=== PATIENT | male | born 1945 | race Caucasian/White ===

== ENCOUNTER 2017-05-05 18:42 | Emergency (ER) | payer OTHER ==
[2017-05-05 19:02] VITALS: TEMP 98.6
[2017-05-05] MEDS ORDERED: LISINOPRIL 10 MG TAB PO ONE (19:08)
--- NOTE | 2017-05-05 19:10 | ED.PDOC ---
History of Present Illness - General Chief Complaint: Blood Pressure Problem Stated Complaint: high blood pressure Time Seen by Provider: 05/05/17 19:02 Source: patient, RN notes reviewed, Vital Signs reviewed, family - Exam Limitations: no limitations - History of Present Illness Initial Comments: Patient comes in with c/o elevated blood pressure. He ran out of his Lisinopril 3 days ago and did not get it refilled. + MARTINEZ. No chest pain or SOB. Reports that overall he feels fine. Timing/Duration: getting worse - over 3 days without medication Severity: moderate Improving Factors: medication Worsening Factors: nothing Associated Symptoms: headaches Allergies/Adverse Reactions: Allergies Nitroglycerin Adverse Reaction (Verified 05/05/17 19:02) Other "Drops the BP down real low" Home Medications: Ambulatory Orders Cyanocobalamin [Vitamin B12] 500 mcg PO DAILY 02/12/15 Escitalopram [Lexapro] 10 mg PO DAILY 02/12/15 Folic Acid 1 mg PO DAILY 02/12/15 Labetalol HCl 100 mg PO BID 02/12/15 Lisinopril 10 mg PO DAILY 02/12/15 Multiple Vitamins W/ Minerals [Century Mature] 1 tab PO DAILY 02/12/15 Vitamins W/ Lipotropics [B-100] 1 tab PO DAILY 02/12/15 Thiamine HCl 100 mg PO DAILY #30 tab 02/13/15 Ujleuaaoeflzm-Wmhb-Yuihgedqpl [Fioricet] 1 ea PO Q8H PRN #21 tab 01/24/16 Review of Systems - Review of Systems Constitutional: States: no symptoms reported. Denies: diaphoresis, malaise, weakness EENTM: States: no symptoms reported Respiratory: States: no symptoms reported. Denies: short of breath Cardiology: States: no symptoms reported. Denies: chest pain Gastrointestinal/Abdominal: States: no symptoms reported Musculoskeletal: States: no symptoms reported Skin: States: no symptoms reported Neurological: States: headache. Denies: numbness, paresthesia, tingling, tremors, weakness All other Systems: No Change from Baseline Past Medical History (General) - Patient Medical History Hx Seizures: Yes - siezure type activity, but not a typical seizure. Hx Stroke: Yes - 4 years ago. Hx Asthma: Yes - as a kid. Hx of COPD: No Hx Cardiac Disorders: No Hx Congestive Heart Failure: No Hx Pacemaker: No Hx Hypertension: Yes Hx Diabetes: No Hx Gastroesophageal Reflux: Yes Hx MRSA: No Surgical History: no surgical history - Vaccination History Hx Tetanus, Diphtheria Vaccination: Yes - Social History Hx Tobacco Use: No Hx Alcohol Use: Yes - 6 beers daily Hx Substance Use: No Hx Substance Use Treatment: No Hx Physical Abuse: No Hx Emotional Abuse: No - Female History Patient : No Family Medical History - Family History Father Family History: No Known Name: Jose Ricardo Sr. Living Status: Age at (years of age): 72 Cause of : Pancreatic cancer Hx Family Asthma: - other history unknown Hx Family Cancer: Yes Physical Exam - Physical Exam General Appearance: Alert, Comfortable, No apparent distress, Well Developed, Well Groomed, Well Hydrated, Well Nourished Eye Exam: bilateral normal Neck: supple, normal inspection Respiratory: chest non-tender, lungs clear, normal breath sounds, no respiratory distress, no accessory muscle use Cardiovascular/Chest: regular rate, rhythm, no gallop, no JVD, no murmur Gastrointestinal/Abdominal: normal bowel sounds, non tender, soft, no organomegaly, no pulsatile mass Extremity: normal inspection Neurologic: no motor/sensory deficits, alert, normal mood/affect, oriented x 3 Skin Exam: normal color, warm/dry Comments: Vital Signs 05/05/17 18:58 Temperature 98.6 F Pulse Rate [ 69 pulse ox] Respiratory 16 Rate Blood Pressure 187/111 [Left Arm] O2 Sat by Pulse 96 Oximetry Progress - Progress Progress: 05/05/17 21:20 Patient given Lisinopril 20mg PO w/o improvement so gave Metoprolol 25mg PO. BP still 179/96. Will recheck in 15 minutes, if still elevated will give clonidine 0.1mg po. 05/05/17 21:33 BP still elevated @ 177/109 Will give Clonidine 0.2mg PO 05/05/17 22:15 BP is still 180/103. Will [address] IV and give Cardizem 20mg IV. 05/05/17 23:36 BP 115/96 P 52 05/06/17 00:10 BP has been fairly stead but now he is a little confused. now reports his blood pressure at home is normally in the 170's. fasting blood sugar is 91 05/06/17 00:19 now reports that this confusion is not unusual for him. BP now 158/72. seems to have overly dramatic reactions to things she later reports are normal for him: the BP in the 170's and the confusion. Will d/c home with instructions to fill and restart Lisinopril. Follow up with PCP this week to adjust BP medications to get better control. 05/06/17 00:23 - Results/Orders Results/Orders: Laboratory Tests 05/06/17 00:09 POC Glucose 91 Departure - Departure Clinical Impression: Hypertension Qualifiers: Hypertension type: essential hypertension Qualified Code(s): I10 - Essential ( primary) hypertension ICD-10 Supporting Text: Due to not taking his blood pressure medication. Time of Disposition: 00:22 Disposition: Discharge to Home or Self Care Condition: Good Departure Forms: ED Discharge - Pt. Copy, Patient Portal Self Enrollment Instructions: DI for High Blood Pressure Diet: resume usual diet Activity: increase activity as tolerated Referrals: ALYSIA OWENS IV, SENIOR [employer] CONSULTANT [Primary Care Provider] - 1-5 Days Home Medications: Ambulatory Orders Cyanocobalamin [Vitamin B12] 500 mcg PO DAILY 02/12/15 Escitalopram [Lexapro] 10 mg PO DAILY 02/12/15 Folic Acid 1 mg PO DAILY 02/12/15 Labetalol HCl 100 mg PO BID 02/12/15 Lisinopril 10 mg PO DAILY 02/12/15 Multiple Vitamins W/ Minerals [Century Mature] 1 tab PO DAILY 02/12/15 Vitamins W/ Lipotropics [B-100] 1 tab PO DAILY 02/12/15 Thiamine HCl 100 mg PO DAILY #30 tab 02/13/15 Ysuaqwblsjsot-Lnra-Ykxeiylmfg [Fioricet] 1 ea PO Q8H PRN #21 tab 01/24/16 Additional Instructions: Refill and restart Lisinopril Follow up with Dr. Owens this week to adjust BP medications to get better control.
[2017-05-05] MEDS ORDERED: METOPROLOL TARTRATE 25 MG TAB ONE (20:38)
[2017-05-05] MEDS ORDERED: METOPROLOL TARTRATE 25 MG TAB PO ONE (20:39)
[2017-05-05] MEDS ORDERED: cloNIDine HCL 0.1 MG TAB PO ONE (21:33)
[2017-05-06] MEDS ORDERED: SODIUM CHLORIDE 0.9% 1000ML 1,000 ML ONE (00:06)
[2017-05-06] MEDS ORDERED: SODIUM CHLORIDE 0.9% 1000ML 1,000 ML IVS ONE (00:12)
[2017-05-06] MEDS ORDERED: ONDANSETRON INJ 4 MG/2 ML VIAL IV ONE (00:33)
[2017-05-06] MEDS ORDERED: ONDANSETRON INJ 4 MG/2 ML VIAL ONE (00:34)
[2017-05-06 00:57] VITALS: BP 176/77; O2SAT 99
== END 2017-05-06 01:03 | disposition home or self-care (01) ==
LOC: ER 18:42
DX: I10 Essential (primary) hypertension (principal); K21.9 Gastro-esophageal reflux disease without esophagitis; Z88.8 Allergy status to other drugs, medicaments and biological substances; Z79.899 Other long term (current) drug therapy
CPT/HCPCS: 36416; 82948; J2405; J7030

== ENCOUNTER 2017-05-06 21:11 | Observation (INO) | payer OTHER ==
--- NOTE | 2017-05-06 22:07 | ED.PDOC ---
History of Present Illness - General Chief Complaint: Blood Pressure Problem Stated Complaint: high blood pressure Time Seen by Provider: 05/06/17 21:46 Source: family Exam Limitations: clinical condition Additional Information: AMS. PT WAS SEEN LAST NIGHT FOR HTN. TX'D AND RELEASED. HAS BEEN AT HOME AND FELL TWICE. NO FAMILY SAW FALL BUT DID FIND HIM UNDER A TABLE. SAW HIS PCP THIS AM AND STARTED ON SECOND BP MED. TONIGHT HAD DBP 100+ WITH CONFUSION WHICH HAS BEEN INTERMITTENT. WAS BROUGHT FOR EVALUATION. - History of Present Illness Timing/Duration: unsure Severity: moderate Improving Factors: nothing Worsening Factors: nothing Associated Symptoms: other - PT IS A CHRONIC ALCOHOLIC. NO ETOH FOR 3 DAYS AND HAS ALSO HAD CONFUSION WITH HYPONATREMIA IN PAST. Allergies/Adverse Reactions: Allergies Nitroglycerin Adverse Reaction (Verified 05/06/17 21:21) Other "Drops the BP down real low" Home Medications: Ambulatory Orders Escitalopram [Lexapro] 10 mg PO DAILY 02/12/15 Lisinopril & Hydrochlorothiazi [Lisinopril/Hctz 20-25 mg] 1 tab PO DAILY Review of Systems - Review of Systems Constitutional: Denies: chills, fever Respiratory: Denies: cough, short of breath Cardiology: Denies: chest pain, palpitations Gastrointestinal/Abdominal: Denies: abdominal pain, vomiting Genitourinary: States: no symptoms reported Musculoskeletal: Denies: back pain, neck pain Skin: States: no symptoms reported Neurological: States: other - CONFUSION. Denies: seizure, weakness Endocrine: States: no symptoms reported Unable to Obtain Due To: dementia, other - ROS PROVIDED BY FAMILY BUT FELT TO BE LIMITED. Past Medical History (General) - Patient Medical History Hx Seizures: Yes - siezure type activity, but not a typical seizure. Hx Stroke: Yes - 4 years ago. Hx Dementia: Yes - DOCUMENTED ON H&P FROM 02/13/15 Hx Asthma: Yes - as a kid. Hx of COPD: No Hx Cardiac Disorders: No Hx Congestive Heart Failure: No Hx Pacemaker: No Hx Hypertension: Yes Hx Thyroid Disease: No Hx Diabetes: No Hx Gastroesophageal Reflux: Yes Hx Renal Disease: No Hx Cancer: No Hx of HIV: No Hx Hepatitis C: No Hx MRSA: No Hx Other - free text: HYPONATREMIA - Vaccination History Hx Tetanus, Diphtheria Vaccination: Yes - Social History Hx Tobacco Use: No Hx Chewing Tobacco Use: No Hx Alcohol Use: Yes - 6 beers daily Hx Substance Use: No Hx Substance Use Treatment: No Feels Threatened In Home Enviroment: No Feels Threatened In a Relationship: No Hx Physical Abuse: No Hx Emotional Abuse: No Hx Suspected Abuse: No - Female History Patient : No Family Medical History - Family History Father Family History: No Known Name: Jose StevensFrazier Sr. 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 Ears, Nose, Throat: normal ENT inspection, other - DAVID HEARING AIDS, DRY MUCOUS MEMBRANES. NC/AT Neck: non-tender, full range of motion, supple, normal inspection Respiratory: lungs clear, normal breath sounds, no respiratory distress Cardiovascular/Chest: regular rate, rhythm, no murmur, other - CHEST SHOWS NO EVIDENCE OF TRAUMA Gastrointestinal/Abdominal: normal bowel sounds, non tender, soft, no organomegaly Back Exam: normal inspection, no CVA tenderness, no vertebral tenderness Extremity: normal range of motion, non-tender, normal inspection Neurologic: other - ORIENTED X 2. DOES NOT KNOW DATE. SOSA, HOWEVER CANNOT FORMALLY TEST DUE TO PT'S COOPERATION. NO GROSS DEFICITS DETECTED. Skin Exam: normal color, warm/dry Lymphatic: no adenopathy Progress - Progress Progress: 05/06/17 23:30 SLEEPING, NAD, BP BETTER. WILL ADMIT. NA 129 NO OLD - EKG/XRAY/CT EKG: Rodriguez - 53, LAD, LAE, , Sinus, nonspecific ST T wave Chg - NAIP, Unchanged from - 01/23/16 Departure - Departure Clinical Impression: Altered sensorium, Alcohol abuse HTN (hypertension) Qualifiers: Hypertension type: essential hypertension Qualified Code(s): I10 - Essential ( primary) hypertension Time of Disposition: 23:35 - D/W ARASH, AGREES TO ADMIT Disposition: Admit Patient Condition: Fair Departure Forms: ED Discharge - Pt. Copy, Patient Portal Self Enrollment Referrals: ALYSIA OWENS IV, DESK OPERATOR [Primary Care Provider] - 1-2 Weeks Home Medications: Ambulatory Orders Escitalopram [Lexapro] 10 mg PO DAILY 02/12/15 Lisinopril & Hydrochlorothiazi [Lisinopril/Hctz 20-25 mg] 1 tab PO DAILY
--- NOTE | 2017-05-07 00:31 | HP ---
SUPERVISING PHYSICIAN: Toni Moss MD CHIEF COMPLAINT: Elevated blood pressure. HISTORY OF PRESENT ILLNESS: Mr. Ricardo is a 72-year-old, male patient who presented to the Emergency Department complaining of having high blood pressure. He had been seen in the Emergency Room on 05/05/17 for similar problems when it was noted he had not taken his lisinopril because he had run out. He was given a prescription and had his blood pressure better controlled and was discharged to followup with his primary care provider, Carmelo Segovia, nurse practitioner, 05/06/2017. He did see Carmelo in the afternoon and was started on a second medication for his blood pressure, but at time of admit the new medication had not been identified. He continued to show elevated diastolic blood pressures of over 100 with some notable confusion which appears to be intermittent, after which his brought him to the Emergency Room for further evaluation. He does have a significant history of chronic alcohol abuse and has not had a drink for over 3 days as well as had previous admission for confusion and some hyponatremia in the past. The patient has had multiple falls since his previous Emergency Room visit and prior to admission to the Emergency Room today. Today, his laboratory studies showed a moderate hyponatremia with sodium of 129. Liver functions were within normal limits as well as amylase and lipase. Vital signs initially in the Emergency Department showed blood pressure 167/97, heart rate 53, saturation 99% on room, afebrile at 98.7. Dr. Garcia reported the patient was having some inappropriate behaviors and some confusional state. At that point, a CT of the head was completed and per radiologic interpretation there was no acute intracranial abnormalities except for some small vessel ischemic disease with a note of old lacunar infarct. Chest x-ray showed no acute disease process per radiologic interpretation. Laboratory studies showed normal white count of 8.5, but did have early left shift. Chemistries showed the hyponatremia. Given that the patient had been seen in the Emergency Room two days previously with similar symptoms and has a history of alcohol abuse. Dr. Garcia requested the patient be placed in observation for further evaluation and to better assess his blood pressure and medication regimen as well as fluid replacement to normalize his sodium. The patient was placed in observation in stable condition. On admission to the Medical/Surgical Floor, the patient was slightly confused and was resting well, therefore, history was obtained primarily from old records and Emergency Room records as his family was not present at time of admission. PAST MEDICAL HISTORY: 1. Hypertension. 2. History of cerebrovascular accident in 2013. 3. History of questionable seizure activity with reported atypical seizures. 4. Chronic alcohol abuse. 5. Chronic obstructive pulmonary disease. 6. Depression. 7. Dementia as noted in the previous History and Physical in 2015. PAST SURGICAL HISTORY: 1. Cataract surgery. CURRENT MEDICATIONS: 1. Lisinopril/hydrochlorothiazide 20/25 mg tablet daily. 2. Lexapro 10 mg daily. ALLERGIES: NO KNOWN ALLERGIES FAMILY HISTORY: Significant for pancreatic cancer in his father who at age 72. SOCIAL HISTORY: The patient lives in [place], [place], with his . He is a retired salesperson. He does have a history of smoking cigarettes for over 30 years, 1 to 2 packs per day, having quit, but currently using E-cigarettes and vapors. He does have a history of decades of alcohol abuse with a history of drinking a half bottle a day at least of hard liquor to beer. He denies any illicit drug use. REVIEW OF SYSTEMS: Unobtainable at time of admission to the Medical/Surgical Floor as the patient was asleep, but easily aroused, but was slightly confused and no family was present at the time of admission. PHYSICAL EXAMINATION: VITAL SIGNS: On admission to the Emergency Room, blood pressure 167/97. Respiratory rate 14. Heart rate 53. Saturation 99% on room air. Temperature 98.7. On admission to the Medical/Surgical Floor, blood pressure 145/87. Admission weight 81.6 kg. GENERAL: The patient is resting, appears to be in no acute distress and is somewhat confused, but pleasantly confused. He is alert to himself only. HEENT: There was notable nystagmus to the left eye which apparently is chronic and is under treatment. Oropharynx is pink, dry mucous membranes with no lesions. Bilateral hearing aids present. NECK: Supple, nontender with full range of motion. No jugular venous distention noted. CHEST: Lungs clear to auscultation bilaterally without any rhonchi, wheezes, or rales. CARDIOVASCULAR: Regular rate and rhythm without any appreciable murmurs, gallops, or rubs. ABDOMEN: Soft, nontender. Positive bowel sounds. EXTREMITIES: There is no cyanosis, clubbing or edema. NEUROLOGIC: The patient is oriented to himself. Cranial nerves II-XII as tested are grossly intact. Facial features are symmetrical. Extraocular movements are within normal limits with a notable nystagmus. No gross motor deficits were noted. SKIN: Warm and dry with no lesions or rashes noted. LABORATORY: White count normal at 8.5, hemoglobin 17, hematocrit 50.3, platelet count 254,000. Differential did show early left shift. RBCs initially showed a hyperchromic/microcytic presentation. Chemistries showed hyponatremia with sodium 129, potassium normal at 3.9, carbon dioxide 27, BUN 16 , creatinine 0.92, calcium 9.0, magnesium 1.7. Liver functions were within normal limits except for a slightly elevated bilirubin at 1.2. Ammonia was normal at 7 with amylase and lipase being within normal limits. Vitamin B12 and TSH were pending at time of admission. Urinalysis showed 40 ketones with trace amount of blood, small amount of bilirubin and 2.0 urobilinogen with microscopic within normal limits. Toxicology screen showed all negative substances tested. Salicylates were less than 4, acetaminophen was less than 10. RADIOLOGY: Chest x-ray per radiologic interpretation, singe view, showed no acute cardiopulmonary disease. He had a CT of the head secondary to his fall and confusion and per radiologic interpretation there were no acute intracranial abnormalities noted. There was note of small vessel ischemic disease with old lacunar infarct. EKG showed a sinus bradycardia with a left anterior fascicular block. When compared to EKG on 01/23/16, there were no acute changes noted. ASSESSMENT: 1. Uncontrolled hypertension. 2. Acute mental status change with same level falls, likely secondary to exacerbation of some underlying dementia as well as some concern for early alcohol withdrawal as the patient has a significant history of alcohol abuse and has been without alcohol for over 72 hours. 3. History of past cerebrovascular accident with no reported residual effects. 4. Dementia by history. 5. Electrolyte imbalance with hyponatremia and hypomagnesemia, likely secondary to ongoing alcohol abuse. 6. Chronic obstructive pulmonary disease without any exacerbation in a chronic smoker. 7. History of extensive tobacco abuse, currently utilizing E-cigarettes and vaporizers. 8. Significantly decreased hearing bilaterally requiring hearing aids. 9. Mild dehydration secondary to underlying alcoholism and poor nutritional intake. 10. Slightly elevated liver function tests with elevated bilirubin in a patient with a history of chronic alcohol abuse. PLAN: The patient will be placed in observation tonight for close monitoring and neurologic checks. Additional laboratory studies were initiated. Those will be reviewed once available. I will start him on a banana bag with multivitamin infusion and 100 of thiamine over 8 hours. We will start him on Protonix prophylactically given his history of alcoholism. He will be on DVT prophylaxis as per protocol. I will plan to replace his magnesium with IV magnesium 2 grams and reevaluate in the morning. We will monitor his blood pressure closely. At this time, it is fairly well controlled. We will need to further assess his home medication list in efforts to re-start his medications that were present prior to his admission from the recent visit that he had with Carmelo Segovia. We need to touch base with Carmelo Segovia to get some medical record reviews from previous followup visits. We will get a physical therapy consultation given the past falls. We will anticipate length of stay to be one to two days. Until then, we will continue to monitor the patient closely and treat appropriately. Once the patient is found to be clinically stable, he certainly can be discharged to have close followup in the outpatient setting by his primary care provider, Carmelo Segovia NP. #[id number] [facility] HOSPITALKrystyna
[2017-05-07] MEDS ORDERED: ACETAMINOPHEN 325 MG TAB PO PRN (00:57)
[2017-05-07] MEDS ORDERED: ONDANSETRON INJ 4 MG/2 ML VIAL IV PRN (00:57)
[2017-05-07] MEDS ORDERED: IV SET AND CAP CHANGE INJ INJ SCH (01:00)
[2017-05-07] MEDS ORDERED: THIAMINE HCL INJ 100 MG/ML VIAL ONE (01:14)
[2017-05-07] MEDS ORDERED: SODIUM CHLORIDE 0.9% 1000ML 1,000 ML ONE (01:14)
[2017-05-07] MEDS ORDERED: MULTIPLE VITAMIN 10 ML VIAL ONE (01:15)
[2017-05-07] MEDS: SODIUM CHLORIDE 0.9% (FLUSH) 10 ML SYG IV PRN ×3 (01:27→02:20)
[2017-05-07] MEDS: MULTIPLE VITAMIN INJ 10 ML, THIAMINE HCL INJ 100 MG in SODIUM CHLORIDE 0.9% 1000ML 1,00... IVS SCH (01:27)
[2017-05-07] MEDS ORDERED: PANTOPRAZOLE SODIUM IV 40 MG VIAL IV SCH (01:30)
[2017-05-07] MEDS ORDERED: MAGNESIUM SULFATE PREMIX 2GM 2 GM in PREMIX BAG 1 BAG IVPB ONE (02:00)
[2017-05-07] MEDS ORDERED: MAGNESIUM SULFATE PREMIX 2GM 50 ML IVPB ONE (02:12)
--- NOTE | 2017-05-07 02:36 | PCM.CORE ---
Physician DVT/VTE - Nurse DVT Assessment & Total Each Risk Factor Represents 2 Points: Age 60-74 Each Risk Factor Represents 1 Point: Medical PT at Bed Rest Each Risk Factor is 1 Point: Serious Lung disease (pnemonia <1month, COPD, emphysema,etc) DVT Assessment Score: 4 - 5 or more Very High Risk Treatments: Early Ambulation *, Sequential Compression Device Pharmacological: Enoxaparin 40mg SQ Daily
[2017-05-07] MEDS ORDERED: ENOXAPARIN SODIUM 40 MG/0.4 ML SYG SUBCU SCH (09:00)
[2017-05-07] MEDS ORDERED: NICOTINE PATCH 21 MG TD ONE (12:52)
[2017-05-07] MEDS ORDERED: chlordiazePOXIDE HCL 25 MG CAP PO PRN (16:23)
[2017-05-07] MEDS ORDERED: NON-FORMULARY MEDICATION 1 EA MIS (Lisinopril & Hydrochlorothiazi [Lisinopril/Hctz 20-25 M PO SCH (16:30)
[2017-05-07] MEDS ORDERED: ESCITALOPRAM 10 MG TAB PO SCH (16:30)
[2017-05-07] MEDS ORDERED: LISINOPRIL 10 MG TAB PO SCH (17:00)
[2017-05-07] MEDS ORDERED: hydroCHLOROthiazide 25 MG TAB PO SCH (17:00)
--- NOTE | 2017-05-07 17:06 | US ---
EXAM DESCRIPTION: Carotid Duplex CLINICAL HISTORY: ams COMPARISON: None Available. TECHNIQUE: Carotid Doppler ultrasound FINDINGS: Atherosclerotic disease is observed in both carotid bulbs. Antegrade flow is observed in both vertebral arteries. Some acceleration flow is observed in the right external carotid artery. No further significant acceleration flow is detected. IMPRESSION: No hemodynamically significant stenosis is detected. Electronically signed by: Damaso Slater MD 05/07/2017 5:05 PM CDT
[2017-05-07] MEDS ORDERED: PANTOPRAZOLE SODIUM TAB 40 MG PO ONE (19:24)
[2017-05-08] MEDS ORDERED: THIAMINE HCL INJ 100 MG/ML VIAL ONE (00:48)
[2017-05-08] MEDS ORDERED: SODIUM CHLORIDE 0.9% 1000ML 1,000 ML ONE (00:48)
[2017-05-08] MEDS ORDERED: MULTIPLE VITAMIN 10 ML VIAL ONE (00:49)
[2017-05-08] MEDS: SODIUM CHLORIDE 0.9% (FLUSH) 10 ML SYG IV PRN (01:02)
[2017-05-08] MEDS: MULTIPLE VITAMIN INJ 10 ML, THIAMINE HCL INJ 100 MG in SODIUM CHLORIDE 0.9% 1000ML 1,00... IVS SCH (01:03)
[2017-05-08 06:07] VITALS: BP 138/82; TEMP 97.6
[2017-05-08] MEDS ORDERED: PANTOPRAZOLE SODIUM TAB 40 MG PO SCH (06:30)
[2017-05-08] MEDS ORDERED: POTASSIUM CHLORIDE 20 MEQ TAB PO ONE (09:03)
[2017-05-08] MEDS ORDERED: INFLUENZA VIRUS VACC (ADULT) 0.5 ML SYG IM ONE ×2 (10:08→10:26)
--- NOTE | 2017-05-08 10:47 | DS ---
SUPERVISING PHYSICIAN: Toni Moss MD DISCHARGE DIAGNOSIS: 1. Acute mental status change with same level falls, likely secondary to exacerbation of some underlying dementia as well as some concern for early alcohol withdrawal as the patient has a significant history of alcohol abuse and had been without alcohol for 72 hours on the date of admission, now improved and presently on Librium. 2. History of past cerebrovascular accidents with no reported residual effects. 3. Uncontrolled hypertension. 4. Dementia by history. 5. Electrolyte imbalance, improved, most likely secondary to ongoing alcohol abuse. 6. Chronic obstructive pulmonary disease without any exacerbation in a chronic smoker. 7. History of extensive tobacco abuse, currently utilizing E-cigarettes and vaporizers. 8. Significantly decreased hearing bilaterally requiring hearing aids. 9. Mild dehydration secondary to underlying alcoholism, improved. 10. Mildly elevated total bilirubin on admission in a chronic alcoholic, now normalized. HISTORY OF PRESENT ILLNESS: Mr. Ricardo is a 72-year-old, male patient who presented to the Emergency Department complaining of having high blood pressure. He had been seen in the Emergency Room on 05/05/17 for similar problems when it was noted he had not taken his lisinopril because he had run out. He was given a prescription and had his blood pressure better controlled and was discharged to followup with his primary care provider, Carmelo Segovia, nurse practitioner, 05/06/2017. He did see Carmelo in the afternoon and was started on a second medication for his blood pressure, but at time of admit the new medication had not been identified. He continued to show elevated diastolic blood pressures of over 100 with some notable confusion which appears to be intermittent, after which his brought him to the Emergency Room for further evaluation. He does have a significant history of chronic alcohol abuse and has not had a drink for over 3 days as well as had previous admission for confusion and some hyponatremia in the past. The patient has had multiple falls since his previous Emergency Room visit and prior to admission to the Emergency Room today. Today, his laboratory studies showed a moderate hyponatremia with sodium of 129. Liver functions were within normal limits as well as amylase and lipase. Vital signs initially in the Emergency Department showed blood pressure 167/97, heart rate 53, saturation 99% on room, afebrile at 98.7. Dr. Garcia reported the patient was having some inappropriate behaviors and some confusional state. At that point, a CT of the head was completed and per radiologic interpretation there was no acute intracranial abnormalities except for some small vessel ischemic disease with a note of old lacunar infarct. Chest x-ray showed no acute disease process per radiologic interpretation. Laboratory studies showed normal white count of 8.5, but did have early left shift. Chemistries showed the hyponatremia. Given that the patient had been seen in the Emergency Room two days previously with similar symptoms and has a history of alcohol abuse. Dr. Garcia requested the patient be placed in observation for further evaluation and to better assess his blood pressure and medication regimen as well as fluid replacement to normalize his sodium. The patient was placed in observation in stable condition. On admission to the Medical/Surgical Floor, the patient was slightly confused and was resting well, therefore, history was obtained primarily from old records and Emergency Room records as his family was not present at time of admission. HOSPITAL COURSE: The patient's mental status improved over the next 24 hours to where at some point his said he was at baseline. He also had a carotid Doppler done and per radiologic interpretation showed no hemodynamically stenosis detected. He was also put on Librium 25 mg 3 times daily for possible alcohol withdrawal. He tolerated the Librium without any problems. His sodium improved and although his potassium was somewhat low this morning at 3.2, he was given oral potassium replacement. At this point, he is stable enough to be discharged home. DISCHARGE PLAN: The patient will be discharged home in stable condition. He is to resume his previous activity. He has had a poor appetite over the last week or so according to his although he did eat well today. He has been encouraged to eat well balanced diet. At this point, he states he is not going to drink anymore, so I have given him a prescription for Librium and instructed him that he should not take it if he does drink again. He has close followup with his primary care provider, NORMA Santos, tomorrow at 10 AM. I have given him a prescription for Librium and he is to continue his previous medications. He is to call Carmelo Segovia's office or to return to the hospital for any other problems or complications. DISCHARGE MEDICATIONS: 1. Lexapro. 2. Lisinopril/hydrochlorothiazide. 3. Librium. Dr. Moss is the collaborating physician and available for consultation. #[id number]/1941 [facility]
[2017-05-08 11:42] VITALS: O2SAT 98
== END 2017-05-08 11:20 | disposition home health service (06) ==
LOC: ER 21:11 → MS 05-07 00:30
PROVIDERS: ADMIT Nurse Practitioner Family; ATTEND Nurse Practitioner Acute Care
DX: R41.82 Altered mental status, unspecified (principal); R29.6 Repeated falls; F10.20 Alcohol dependence, uncomplicated; I10 Essential (primary) hypertension; F03.90 Unspecified dementia, unspecified severity, without behavioral disturbance, psychotic disturbance, mood disturbance, and anxiety; E83.42 Hypomagnesemia; E87.8 Other disorders of electrolyte and fluid balance, not elsewhere classified; E86.0 Dehydration; E87.1 Hypo-osmolality and hyponatremia; E80.6 Other disorders of bilirubin metabolism; J44.9 Chronic obstructive pulmonary disease, unspecified; F17.210 Nicotine dependence, cigarettes, uncomplicated; H91.93 Unspecified hearing loss, bilateral; I44.4 Left anterior fascicular block; R00.1 Bradycardia, unspecified; F32.9 Major depressive disorder, single episode, unspecified; Z23 Encounter for immunization; Z79.899 Other long term (current) drug therapy; Z91.81 History of falling; Z86.73 Personal history of transient ischemic attack (TIA), and cerebral infarction without residual deficits; Z80.0 Family history of malignant neoplasm of digestive organs
CPT/HCPCS: 36415 ×7; 70450; 71010; 80053 ×3; 80307; 80329 ×2; 81001; 82140; 82150; 82607; 83690; 83735 ×2; 84443; 85025 ×2; 90674; 93005; 93880; 94760 ×3; 96365; 96366; 96367; 96372; 96375; 96376; 97116; 97162; 99284; G0008; G0378; G8978; G8979; J1650; J3411 ×2; J3475; J7030 ×2

== ENCOUNTER → 2018-02-25 | Outpatient (CLI) | payer OTHER ==
--- NOTE | 2018-02-25 14:53 | RAD ---
EXAM DESCRIPTION: Chest,2 Views CLINICAL HISTORY: 72 years Male, OTHER PNEUMONIA, UNSPECIFIED ORGANSIM COMPARISON: May 06, 2017 TECHNIQUE: PA and lateral radiographs of the chest were obtained. FINDINGS: Trachea is midline.The cardiomediastinal silhouette is normal in size. The pulmonary vasculature is within normal limits.The lungs are clear with no acute consolidation.No evidence of pleural effusions.No evidence of pneumothorax. IMPRESSION: No acute cardiopulmonary process. Electronically signed by: Wayne Ahumada MD 02/25/2018 2:51 PM CDT
== END ==
LOC: LAB.O 14:03
PROVIDERS: ATTEND Nurse Practitioner Family
DX: J18.8 Other pneumonia, unspecified organism (principal)

== ENCOUNTER → 2018-09-25 | Outpatient (CLI) | payer OTHER ==
--- NOTE | 2018-09-26 08:29 | RAD ---
EXAM DESCRIPTION: Barium Swallow: Rad-Fluoroscopy. CLINICAL HISTORY: DYSPHAGIA COMPARISON: None. TECHNIQUE: The patient swallowed barium pill with water, under fluoroscopic visualization. The patient swallowed gas-producing granules, water, and heavy density barium under fluoroscopic visualization. The images were obtained with the patient standing and horizontal. Patient drank medium density barium through a straw in the semi-prone position. 107 fluoroscopic cine loop images. 9 static fluoroscopic images. Total fluoroscopy time was 3.1 minutes. DAP: 22.8 Gy-cm2.. FINDINGS: Patient swallowed the barium pill, there was delay at the level of the thoracic inlet. Until then advanced to the gastroesophageal junction where there was another delay. Additional sips of water flush the pill into the stomach. Prior to each swallow of barium, the patient demonstrated premature spillage into the vallecula. One additional swallow was required after each initial swallow. No laryngeal penetration or aspiration. Small extrinsic mass affect on the proximal cervical esophagus at the C5-C6 level. This does not appear to be caused by an osteophyte. Primary peristaltic wave was visualized almost complete to the GE junction. Minimal secondary contractions. No mass effect on the mid or distal esophagus. There is circumferential narrowing of the distal esophagus just proximal to a small hiatal hernia. Not a definite Schatzki's ring. When the patient is moved from the upright to the horizontal position, and when rolling from supine to prone, moderate gastroesophageal reflux to the level of the tracheal olga lidia is seen. No significant mass effect seen on the stomach or duodenum with the duodenal bulb well distended. IMPRESSION: 1. Delays in swallowing barium pill at the laryngeal level and the gastroesophageal level. Premature spillage of contrast into the vallecula before swallowing. No laryngeal penetration or aspiration. Questionable posterior mass effect versus mucosal lesion posterior proximal cervical esophagus. 2. Predominantly fixed hiatal hernia circumferential narrowing on the superior aspect, possibly a partial Schatzki's ring. 3. Moderate gastroesophageal reflux to the level of the tracheal olga lidia. Electronically signed by: Moncho Aldridge MD 09/26/2018 8:26 AM [employer]
== END ==
LOC: RAD 11:13
PROVIDERS: ATTEND Internal Medicine Gastroenterology
DX: R13.10 Dysphagia, unspecified (principal); K21.9 Gastro-esophageal reflux disease without esophagitis

== ENCOUNTER 2018-10-18 10:11 | Emergency (ER) | payer OTHER ==
[2018-10-18] MEDS ORDERED: AMOXICILLIN & POT CLAVULANATE 875 MG TAB PO ONE (11:07)
[2018-10-18] MEDS ORDERED: OSELTAMIVIR 75 MG CAP PO ONE (11:07)
--- NOTE | 2018-10-18 11:19 | ED.PDOC ---
History of Present Illness - General Chief Complaint: General Stated Complaint: Pt complains of sore throat possibly r/t post op Time Seen by Provider: 10/18/18 10:24 Source: patient Exam Limitations: no limitations - History of Present Illness Initial Comments: The patient is a 73-year-old male presenting to the emergency room secondary to cough, sore throat and runny nose worse in the last 2 days. He did have an upper endoscopy 3 days ago for esophageal stenosis and had a dilation done along with a few biopsies. He is not really having any chest pain. No real difficulties with swallowing. No shortness of breath. He does have a cough.he is exposed to multiple sick kids. Timing/Duration: unsure Severity: moderate Improving Factors: nothing Worsening Factors: nothing Associated Symptoms: cough, fever/chills, loss of appetite, malaise Allergies/Adverse Reactions: Allergies Nitroglycerin Adverse Reaction (Verified 10/18/18 10:32) Other "Drops the BP down real low" Home Medications: Ambulatory Orders Escitalopram [Lexapro] 10 mg PO DAILY 02/12/15 Lisinopril & Hydrochlorothiazi [Lisinopril/Hctz 20-25 mg] 1 tab PO DAILY 05/06/17 Amoxicillin & Pot Clavulanate [Augmentin Tab] 875 mg PO BID #6 tab 10/18/18 Omeprazole Magnesium [Prilosec] 10 mg PO DAILY 10/18/18 Oseltamivir Capsule [Tamiflu] 75 mg PO BID 5 Days #10 capsule 10/18/18 Review of Systems - Review of Systems Constitutional: States: chills, fever, malaise EENTM: States: nose congestion, throat pain Respiratory: States: cough Cardiology: States: no symptoms reported Gastrointestinal/Abdominal: States: no symptoms reported Genitourinary: States: no symptoms reported Musculoskeletal: States: no symptoms reported - except for generalized myalgias Skin: States: no symptoms reported Neurological: States: headache - mild Endocrine: States: no symptoms reported All other Systems: No Change from Baseline Past Medical History (General) - Patient Medical History Hx Seizures: No Hx Stroke: Yes Hx Dementia: Yes - DOCUMENTED ON H&P FROM 02/13/15 Hx Asthma: No Hx of COPD: No Hx Cardiac Disorders: No Hx Congestive Heart Failure: No Hx Pacemaker: No Hx Hypertension: Yes Hx Thyroid Disease: No Hx Diabetes: No Hx Gastroesophageal Reflux: Yes Hx Renal Disease: No Hx Cancer: No Hx of HIV: No Hx Hepatitis C: No Hx MRSA: No Surgical History: other - Vaccination History Hx Tetanus, Diphtheria Vaccination: - Unk Hx Influenza Vaccination: Yes Hx Pneumococcal Vaccination: Yes Immunizations Up to Date: Yes - Social History Hx Tobacco Use: Yes Hx Chewing Tobacco Use: No Hx Alcohol Use: Yes Hx Substance Use: No Hx Substance Use Treatment: No Hx Depression: No Hx Physical Abuse: No Hx Emotional Abuse: No Hx Suspected Abuse: No - Female History Patient : No Family Medical History - Family History Father Family History: No Known Name: Jose Ricardo Sr. Living Status: Age at (years of age): 73 Cause of : Pancreatic cancer Hx Family Asthma: - other history unknown Hx Family Cancer: Yes Physical Exam - Physical Exam General Appearance: Alert, Comfortable, No apparent distress Eye Exam: bilateral normal Ears, Nose, Throat: hearing grossly normal - chronically decreased bilaterally, nasal congestion, pharyngeal erythema Neck: full range of motion, supple Respiratory: lungs clear, normal breath sounds, no respiratory distress, no accessory muscle use Cardiovascular/Chest: normal peripheral pulses, regular rate, rhythm, no edema Peripheral Pulses: radial,right: 2+, radial,left: 2+ Gastrointestinal/Abdominal: non tender, soft Rectal Exam: deferred Back Exam: no CVA tenderness, no vertebral tenderness Extremity: normal range of motion, non-tender, normal inspection, no pedal edema, normal capillary refill Neurologic: catalyst supervisor II-XII nml as tested, alert, normal mood/affect, oriented x 3 Skin Exam: normal color Comments: Vital Signs - 24 hr 10/18/18 10:21 Temperature 100 F H Pulse Rate [ 100 H Left Radial] Respiratory 18 Rate Blood Pressure 146/78 [Left Arm] O2 Sat by Pulse 95 Oximetry Progress - Results/Orders Results/Orders: the patient is 73-year-old male presenting to the emergency room with symptoms consistent with the flu. He has tested positive for the flu and negative for strep. He'll be placed on Tamiflu twice daily for 5 days. Additionally he did just recently have esophageal biopsies done. I'm going to place him on 3 days of Augmentin to prevent any superimposed infection. No evidence of any perforation or esophageal dysfunction at this time. He needs to follow-up with his primary care doctor next week. Keep well hydrated. He can take Motrin 400 mg 3 times a day with food for the next 3 or 4 days only. Departure - Departure Clinical Impression: Influenza A Disposition: Discharge to Home or Self Care Condition: Fair Departure Forms: ED Discharge - Pt. Copy, Patient Portal Self Enrollment Instructions: Flu, Adult (DC) Diet: bland diet Referrals: ALYSIA OWENS IV, SYSTEMS TECHNICIAN [Primary Care Provider] - 1-2 Weeks Prescriptions: Amoxicillin & Pot Clavulanate [Augmentin Tab] 875 mg PO BID #6 tab Oseltamivir Capsule [Tamiflu] 75 mg PO BID 5 Days #10 capsule Home Medications: Ambulatory Orders Escitalopram [Lexapro] 10 mg PO DAILY 02/12/15 Lisinopril & Hydrochlorothiazi [Lisinopril/Hctz 20-25 mg] 1 tab PO DAILY 05/06/17 Amoxicillin & Pot Clavulanate [Augmentin Tab] 875 mg PO BID #6 tab 10/18/18 Omeprazole Magnesium [Prilosec] 10 mg PO DAILY 10/18/18 Oseltamivir Capsule [Tamiflu] 75 mg PO BID 5 Days #10 capsule 10/18/18 Additional Instructions: the patient is 73-year-old male presenting to the emergency room with symptoms consistent with the flu. He has tested positive for the flu and negative for strep. He'll be placed on Tamiflu twice daily for 5 days. Additionally he did just recently have esophageal biopsies done. I'm going to place him on 3 days of Augmentin to prevent any superimposed infection. No evidence of any perforation or esophageal dysfunction at this time. He needs to follow-up with his primary care doctor next week. Keep well hydrated. He can take Motrin 400 mg 3 times a day with food for the next 3 or 4 days only.
[2018-10-18 11:27] VITALS: BP 141/83; TEMP 100.8; O2SAT 94
== END 2018-10-18 11:45 | disposition home or self-care (01) ==
LOC: ER 10:11
DX: J10.1 Influenza due to other identified influenza virus with other respiratory manifestations (principal); F03.90 Unspecified dementia, unspecified severity, without behavioral disturbance, psychotic disturbance, mood disturbance, and anxiety; I10 Essential (primary) hypertension; K21.9 Gastro-esophageal reflux disease without esophagitis; Z86.73 Personal history of transient ischemic attack (TIA), and cerebral infarction without residual deficits; Z79.899 Other long term (current) drug therapy; Z88.8 Allergy status to other drugs, medicaments and biological substances; Z98.890 Other specified postprocedural states

== ENCOUNTER → 2019-04-28 | Outpatient (CLI) | payer OTHER | LOC: HHH 12:05 | PROVIDERS: ATTEND Nurse Practitioner Family | DX: C41.0 Malignant neoplasm of bones of skull and face (principal); C78.89 Secondary malignant neoplasm of other digestive organs; I25.10 Atherosclerotic heart disease of native coronary artery without angina pectoris ==

== ENCOUNTER → 2019-05-01 | Outpatient (CLI) | payer OTHER | LOC: HHH 12:19 | PROVIDERS: ATTEND Internal Medicine | DX: C41.0 Malignant neoplasm of bones of skull and face (principal); C78.89 Secondary malignant neoplasm of other digestive organs ==

== ENCOUNTER → 2019-05-20 | Outpatient (CLI) | payer OTHER | LOC: GOCC 10:29 | PROVIDERS: ATTEND Internal Medicine | DX: R30.0 Dysuria (principal) ==

== ENCOUNTER → 2019-05-22 | Outpatient (CLI) | payer OTHER | LOC: GOCC 01:41 | PROVIDERS: ATTEND Internal Medicine | DX: Z93.1 Gastrostomy status (principal) ==

== ENCOUNTER 2019-08-01 12:55 | Observation (INO) | payer OTHER ==
[2019-08-01] MEDS ORDERED: SODIUM CHLORIDE 0.9% (FLUSH) 10 ML SYG IV PRN ×2 (14:02→19:42)
--- NOTE | 2019-08-01 14:06 | ED.PDOC ---
History of Present Illness - General Time Seen by Provider: 08/01/19 14:02 Source: patient, family - History of Present Illness Initial Comments: 74 yo male with PMH of esophageal cancer s/p chemoradiation tx who is bib from home for cc of fevers. Onset last night with low-grade fever then spiked to 100.4 F this morning. Also reports chronic wet cough, sometimes productive for clear sputum. Mild dyspnea and generalized weakness also reported but chronic and unchanged. Receives continuous feeds at 50 cc/hr through g-tube and reports hx of aspiration in the past. Denies any chest pain, abd pain, n/v/d, urinary sx's. states cancer is in remission to her knowledge. Allergies/Adverse Reactions: Allergies Nitroglycerin Adverse Reaction (Verified 08/01/19 18:10) Other "Drops the BP down real low" Home Medications: Ambulatory Orders RX: Escitalopram [Lexapro] 20 mg PO DAILY 02/12/15 Omeprazole Magnesium [Prilosec] 40 mg PO DAILY 10/18/18 Cyanocobalamin [B12] 1,000 mcg PO DAILY 08/01/19 Metoclopramide HCl [Metoclopramide Hydrochlor] 10 mg PO QID 08/01/19 Montelukast [Singulair] 10 mg PO BEDTIME 08/01/19 RX: Clotrimazole 10 mg MT TID 08/01/19 RX: Folic Acid 800 mcg PO DAILY 08/01/19 RX: Mirtazapine 30 mg PO BEDTIME 08/01/19 Review of Systems - Review of Systems Review of Systems: 08/01/19 14:06 as per HPI All other Systems: Reviewed and Negative Past Medical History (General) - Patient Medical History Hx Seizures: No Hx Stroke: Yes Hx Dementia: Yes - DOCUMENTED ON H&P FROM 02/13/15 Hx Asthma: No Hx of COPD: No Hx Cardiac Disorders: No Hx Congestive Heart Failure: No Hx Pacemaker: No Hx Hypertension: Yes Hx Thyroid Disease: No Hx Diabetes: No Hx Gastroesophageal Reflux: Yes Hx Renal Disease: No Hx Cancer: No Hx of HIV: No Hx Hepatitis C: No Hx MRSA: No - Vaccination History Hx Tetanus, Diphtheria Vaccination: - Unk Hx Influenza Vaccination: Yes Hx Pneumococcal Vaccination: Yes - Social History Hx Tobacco Use: Yes Hx Chewing Tobacco Use: No Hx Alcohol Use: Yes Hx Substance Use: No Hx Substance Use Treatment: No Hx Depression: No Hx Physical Abuse: No Hx Emotional Abuse: No Hx Suspected Abuse: No - Female History Patient : No Family Medical History - Family History Father Family History: No Known Name: Jose Juan RFrazier Sr. Living Status: Age at (years of age): 73 Cause of : Pancreatic cancer Hx Family Asthma: - other history unknown Hx Family Cancer: Yes Physical Exam - Physical Exam General Appearance: Alert, Comfortable, No apparent distress Eye Exam: bilateral normal Ears, Nose, Throat: hearing grossly normal, normal ENT inspection, normal pharynx Neck: non-tender, full range of motion, supple Respiratory: no respiratory distress, no accessory muscle use, rales - mild at right lung base Cardiovascular/Chest: normal peripheral pulses, regular rate, rhythm, no edema, no JVD, no murmur Gastrointestinal/Abdominal: non tender, soft, no organomegaly Back Exam: normal inspection, no CVA tenderness Extremity: normal range of motion, non-tender, normal inspection, no pedal edema Neurologic: no motor/sensory deficits, alert, normal mood/affect, oriented x 3 Skin Exam: normal color, warm/dry Progress - Progress Progress: 08/01/19 14:07 Fever, cough, hypoxia -consider PNA vs flu vs UTI vs other sources -check flu, labs, CXR -supplemental O2 via NC 08/01/19 16:59 -Pt's labs reveal WBC 18,000 with left shift but no bands. Also with slight DAISHA, likely mild dehydration. Flu is negative. CXR shows no PNA but does reveal evidence of bronchitis. Spoke with Jermaine Etienne who accepts to his service for observation given acute bronchitis with marked leukocytosis and acute hypoxia which is resolved with supplemental O2 via NC in ED. Will begin IV Abx with Rocephin 1 g IV. Sameer Wilhelm MD Billing #[id number] - Results/Orders Results/Orders: 08/01/19 14:02 Sodium Chloride 0.9% (Flush) [Saline Flush Syringe] 10 ml IV PRN PRN URINALYSIS Stat 08/01/19 17:02 ED Intent to Admit Routine Laboratory Results - last 24 hr 08/01/19 08/01/19 14:33 14:33 WBC 18.3 H RBC 3.61 L Hgb 10.4 L Hct 32.0 L MCV 88.8 MCH 28.9 MCHC 32.5 L RDW 15.0 H Plt Count 258 MPV 8.3 Absolute Neuts (auto) 16.60 H Absolute Lymphs (auto) 0.70 L Absolute Monos (auto) 0.90 H Absolute Eos (auto) 0.00 Absolute Basos (auto) 0.10 Neutrophils % 90.3 H Lymphocytes % 4.0 L Monocytes % 5.1 Eosinophils % 0.2 L Basophils % 0.4 Sodium 136 Potassium 4.8 Chloride 97 L Carbon Dioxide 29 Anion Gap 14.8 BUN 35 H Creatinine 1.65 H BUN/Creatinine Ratio 21.2 H Random Glucose 115 H Serum Osmolality 280.8 Calcium 8.8 Total Bilirubin 0.3 Direct Bilirubin < 0.1 Indirect Bilirubin 0.2 AST 41 ALT 36 Alkaline Phosphatase 116 Serum Total Protein 6.6 Albumin 3.2 Departure - Departure Clinical Impression: Bronchitis, Hypoxia, Acute kidney injury (nontraumatic) Time of Disposition: 16:59 Disposition: Admit Patient Condition: Fair Home Medications: Ambulatory Orders RX: Escitalopram [Lexapro] 20 mg PO DAILY 02/12/15 Omeprazole Magnesium [Prilosec] 40 mg PO DAILY 10/18/18 Cyanocobalamin [B12] 1,000 mcg PO DAILY 08/01/19 Metoclopramide HCl [Metoclopramide Hydrochlor] 10 mg PO QID 08/01/19 Montelukast [Singulair] 10 mg PO BEDTIME 08/01/19 RX: Clotrimazole 10 mg MT TID 08/01/19 RX: Folic Acid 800 mcg PO DAILY 08/01/19 RX: Mirtazapine 30 mg PO BEDTIME 08/01/19 Decision To Admit - Decistion To Admit Decision to Admit Reason: Admit from ER Decision to Admit Date: 08/01/19 Decision to Admit Time: 16:58
--- NOTE | 2019-08-01 14:45 | RAD ---
EXAM: XR Chest, 2 Views CLINICAL HISTORY: cough, fever TECHNIQUE: Frontal and lateral views of the chest. COMPARISON: 02/25/2018. FINDINGS: Limitations: None. Lungs: Stable chronic obstructive changes. There is mild airway thickening most notable in the left perihilum and lingula. No confluent consolidation. Pleural space: Unremarkable. No pneumothorax. Heart: Unremarkable. No cardiomegaly. Mediastinum: Unremarkable. Bones/joints: Unremarkable. IMPRESSION: Findings most consistent with bronchitis particularly in the lingula and perihilum. No pneumonia. Electronically signed by: Marjan Beltre MD 08/01/2019 2:44 PM [facility]
[2019-08-01] MEDS ORDERED: cefTRIAXone SODIUM 1 GM in SODIUM CHL 0.9% 50ML MIN-BAG+ 50 ML IVPB ONE (17:04)
[2019-08-01] MEDS ORDERED: SODIUM CHLORIDE 0.9% 1000ML 1,000 ML IVS ONE (17:05)
--- NOTE | 2019-08-01 17:50 | HP ---
SUPERVISING PHYSICIAN: Duy Baldwin MD CHIEF COMPLAINT: Fever, chronic cough with some mild dyspnea. HISTORY OF PRESENT ILLNESS: Mr. Ricardo is a 74-year-old, male patient with a history of esophageal cancer status post chemotherapy and radiation treatments. He was brought in from home by his complaining of fever up to 100.4 this morning. She noted he developed a wet cough today, it has become productive and he has had some mild dyspnea with worsening weakness. He is on continuous tube feeding per G-tube which apparently the patient has had issues in the past with aspiration. On admission, the patient denies any chest pain, nausea, vomiting or diarrhea. His initial lab work showed he had a leukocytosis and a left shift with a white count being 18,300. He was mildly anemia with hemoglobin 10.5 and 32.0 hematocrit respectively with chemistries showing a creatinine of 1.65 with patient's baseline creatinine noted to be around 1. His liver functions were all within normal limits. He had a influenza by PCR that was negative for A and B. His chest x-ray per radiology interpretation showed some chronic obstructive changes with some mild airway thickening most notable in the left perihilar and lingual area but no consolidation findings, more consistent with bronchitis but no overt pneumonia. His vital signs in the Emergency Room showed he was hypoxic on nasal cannula initially at 86%. With a breathing treatment he improved to 94%. He was running a low grade fever of 99.5 initially showing to be hemodynamically stable with a blood pressure of 116/73, heart rate 72. Given his comorbidities and concern for past history of aspiration and developing leukocytosis with x-rays concerning for developing bronchitis and at this point probably community acquired pneumonia, the Emergency Room physician, Dr. Wilhelm, requested the patient placed in observation overnight for initiation of parenteral antibiotics and further treatment and evaluation. He was placed in observation in stable condition. The patient is a poor historian and family members were not present at time of exam, therefore, the majority of the history was obtained from previous records and Emergency Room history. PAST MEDICAL HISTORY: 1. Hypertension. 2. Cerebrovascular accident in 2012. 3. Questionable seizure activity in the past with reported atypical seizures. 4. History of chronic alcohol abuse. 5. Chronic obstructive pulmonary disease. 6. Depression. 7. Esophageal cancer in remission. 8. Dementia. 9. Past history of thrush. PAST SURGICAL HISTORY: 1. Cataract surgery. 2. PEG tube placement. CURRENT MEDICATIONS: 1. Prilosec 40 mg daily 2. Singulair 10 mg at bedtime. 3. Mirtazapine 30 mg at bedtime. 4. Reglan 10 mg q.i.d. 5. Folic acid 800 mg daily. 6. Lexapro 20 mg daily. 7. Vitamin B12, 1000 mcg daily. 8. Clotrimazole 10 mg t.i.d. ALLERGIES: Nitroglycerin. FAMILY HISTORY: Significant for pancreatic cancer in his father who at age 72. No other history listed. SOCIAL HISTORY: The patient lives in [place], [place] with his . He is a retired salesperson. He does have a longstanding history of over 30 years at which time he was smoking 1 to 2 packs per day and has utilized in the past, E- cigarettes and vapors but currently is not reportedly using anything. He does have a history of multiple decades of alcohol abuse drinking a half bottle a day of hard liquor and beer. He denies any alcohol or illicit drug use. REVIEW OF SYSTEMS: Unobtainable at time of admission due to the patient was asleep and family members not present at the time of admission. PHYSICAL EXAMINATION: VITAL SIGNS: Temperature 98.1, pulse 76, blood pressure 102/64. Respiratory rate 20. Initially, oxygen saturation was 86% on nasal cannula at 2 liters, after breathing treatments up to 94%. Admission weight 65.4 kg which is down from 81.6 kg on last admission in 2017. GENERAL: The patient is resting comfortably and appears to be in no acute distress. He does look well hydrated. HEENT: Tympanic membranes clear bilaterally. Oropharynx is pink, moist without lesions. NECK: Supple, nontender with full range of motion. No jugular venous distention noted. CHEST: Lung sounds were fairly clear, just a very faint rhonchi heard on the left lateral posterior aspect. . CARDIOVASCULAR: Regular rate and rhythm without any appreciable murmurs, gallops, or rubs. ABDOMEN: Soft, nontender. Positive bowel sounds with a PEG tube in place and no signs of infection. BACK: Without any acute findings. No CVA tenderness and no vertebral tenderness. EXTREMITIES: He does move all extremities at tali, no There is no cyanosis, clubbing or edema. NEUROLOGIC: He was alert and oriented x 3. Somewhat lethargic but easily arouses, follows commands. Cranial nerves II-XII appear to be grossly intact as tested. SKIN: Warm pink and dry. LABORATORY: White count 18,300. Hemoglobin 10.4, hematocrit 32.0 with platelet count 258,000, differential does show a left shift but no bands. Chemistries showed normal electrolytes with BUN 35, creatinine 1.65 which is up from his normal of 1.0. Liver functions were all showing within normal limits. Urinalysis pending. MICROBIOLOGY: Influenza A and B negative by PCR for A and B. RADIOLOGY: Chest x-ray per radiologic interpretation, showed findings consistent with bronchitis, particularly in the lingular and perihilar areas but no overt pneumonia. ASSESSMENT: 1. Acute exacerbation of chronic obstructive pulmonary disease with concerns for left-sided pneumonia, community acquired, with the patient having a high risk for aspiration with tube feedings in place and multiple comorbidities. 2. Leukocytosis probably secondary to #1 with reported fever and concerns again for developing left-sided pneumonia. 3. Normocytic/normochromic anemia, likely of chronic illness. 4. Renal insufficiency likely prerenal azotemia from mild dehydration. 5. Hypertension poorly controlled in the past. 6. History of past cerebrovascular accident with no reported residual effects. 7. Dementia by history. 8. History of alcohol abuse. 9. Extensive history of tobacco/nicotine abuse. PLAN: The patient will be placed in observation for concerns for developing left-sided pneumonia, community acquired. He does have a significant leukocytosis and reportedly had a fever. Will plan to repeat his labs in the morning. He is living with his who is providing his total care. I will discuss with his the clinical findings in the morning. I anticipate if he does well overnight he can probably be discharged either tomorrow or Saturday. We will provide aggressive pulmonary hygiene with updraft treatments, chest percussion therapy. He is not having any wheezing at this point, will hold off on any steroids. Will await a urinalysis to further rule out any other infectious process. He is on antibiotics at this point with Rocephin and azithromycin. Will resume his home medications as those are updated and verified. He is on DVT prophylaxis per protocol with Lovenox. Until we can transition him to outpatient management, we will continue to monitor and treat as needed. #[id number] [facility]
[2019-08-01] MEDS ORDERED: SODIUM CHL 0.9% 50ML MIN-BAG+ 50 ML IVPB ONE (18:44)
[2019-08-01] MEDS ORDERED: cefTRIAXone SODIUM 1 GM VIAL ONE (18:44)
[2019-08-01] MEDS ORDERED: ALBUTEROL SULFATE 2.5 MG/3 ML VIAL NEB PRN (19:49)
[2019-08-01] MEDS ORDERED: ONDANSETRON INJ 4 MG/2 ML VIAL IV PRN (19:49)
[2019-08-01] MEDS ORDERED: IV SET AND CAP CHANGE INJ INJ SCH (20:00)
[2019-08-01] MEDS ORDERED: AZITHROMYCIN IV 500 MG in SODIUM CHLORIDE 0.9% 250ML 250 ML IVPB SCH (20:00)
[2019-08-01] MEDS ORDERED: AZITHROMYCIN IV 500 MG VIAL IVPB ONE (20:07)
[2019-08-01] MEDS ORDERED: SODIUM CHLORIDE 0.9% 250ML 250 ML ONE (20:07)
[2019-08-01] MEDS: CLOTRIMAZOLE 10 MG TROCHE MT SCH (20:15)
[2019-08-01] MEDS: IPRATROPIUM/ALBUTEROL 3 ML VIAL INH SCH ×2 (20:24→23:52)
[2019-08-01] MEDS ORDERED: MIRTAZAPINE 30 MG PO SCH (21:00)
[2019-08-01] MEDS ORDERED: METOCLOPRAMIDE HCL 10 MG PO SCH (21:00)
[2019-08-01] MEDS ORDERED: MONTELUKAST 10 MG TAB PO SCH (21:00)
[2019-08-02] MEDS: SODIUM CHLORIDE 0.9% 1000ML 1,000 ML IVS PRN ×2 (00:32→10:05)
[2019-08-02] MEDS: IPRATROPIUM/ALBUTEROL 3 ML VIAL INH SCH ×2 (04:12→08:00)
[2019-08-02] MEDS ORDERED: cefTRIAXone SODIUM 1 GM in SODIUM CHL 0.9% 50ML MIN-BAG+ 50 ML IVPB SCH (05:00)
[2019-08-02] MEDS ORDERED: SODIUM CHLORIDE 0.9% 50ML 50 ML ONE (05:14)
[2019-08-02] MEDS ORDERED: cefTRIAXone SODIUM 1 GM VIAL ONE (05:14)
[2019-08-02 05:56] VITALS: BP 124/66; TEMP 98.7; O2SAT 98
[2019-08-02] MEDS ORDERED: METOCLOPRAMIDE HCL 5 MG TAB PO SCH (09:00)
[2019-08-02] MEDS ORDERED: FOLIC ACID 1 MG TAB PO SCH (09:00)
[2019-08-02] MEDS ORDERED: ESCITALOPRAM 10 MG TAB PO SCH (09:00)
[2019-08-02] MEDS ORDERED: CYANOCOBALAMIN 1,000 MCG TAB PO SCH (09:00)
[2019-08-02] MEDS ORDERED: OMEPRAZOLE CAP 20 MG CAP PO SCH (09:00)
--- NOTE | 2019-08-02 09:21 | RAD ---
EXAM DESCRIPTION: Chest x-ray two views: CLINICAL HISTORY: Pneumonia COMPARISON: 08/01/2019 TECHNIQUE: PA and lateral views of the chest were obtained. FINDINGS: The heart is normal in size . The hilar and mediastinal structures are within normal limits. The pulmonary vascularity is normal . The lung reyes are free of any active pulmonary parenchymal or pleural disease. Minimal infiltrate in the right lung base is noted. Peribronchial thickening is seen. The bony structures are unremarkable. IMPRESSION: Right basilar interstitial infiltrate. Electronically signed by: Marina Weiss MD 08/02/2019 9:19 AM [facility]
[2019-08-02] MEDS: CLOTRIMAZOLE 10 MG TROCHE MT SCH (10:08)
[2019-08-02] MEDS ORDERED: levoFLOXacin 500 MG TAB PO SCH (11:00)
[2019-08-02] MEDS ORDERED: IPRATROPIUM/ALBUTEROL 3 ML VIAL NEB SCH (12:00)
[2019-08-02] MEDS ORDERED: MIRTAZAPINE 15 MG TAB PO SCH (21:00)
--- NOTE | 2019-08-04 20:09 | DS ---
SUPERVISING PHYSICIAN: Toni Moss M.D. ADMISSION DIAGNOSIS: 1. Acute exacerbation of chronic obstructive pulmonary disease with concerns for left-sided pneumonia, community acquired, with the patient having a high risk for aspiration with tube feedings in place and multiple comorbidities. 2. Leukocytosis secondary to #1 with fever and concerns for developing right- sided pneumonia. 3. Normocytic/normochromic anemia, likely of chronic illness. 4. Renal insufficiency likely prerenal azotemia from mild dehydration. 5. Hypertension poorly controlled in the past. 6. History of past cerebrovascular accident with no reported residual effects. 7. Dementia by history. 8. History of alcohol abuse. 9. Extensive history of tobacco/nicotine abuse. DISCHARGE DIAGNOSIS: 1. Acute exacerbation of chronic obstructive pulmonary disease with right lower lobe pneumonia, community acquired. The patient discharged on Levaquin. 2. Leukocytosis probably secondary to #1 with reported fever and concerns again for developing left-sided pneumonia. 3. Normocytic/normochromic anemia, likely of chronic illness likely chronic showing to be stable. 4. Renal insufficiency likely prerenal azotemia from mild dehydration improving with fluids. 5. Hypertension poorly controlled in the past. 6. History of past cerebrovascular accident with no reported residual effects. 7. Dementia by history. 8. History of alcohol abuse. 9. Extensive history of tobacco/nicotine abuse. REASON FOR HOSPITALIZATION: Mr. Ricardo is a 74-year-old, male patient with a history of esophageal cancer status post chemotherapy and radiation treatments. He was brought in from home by his complaining of fever up to 100.4 this morning. She noted he developed a wet cough today, it has become productive and he has had some mild dyspnea with worsening weakness. He is on continuous tube feeding per G-tube which apparently the patient has had issues in the past with aspiration. On admission, the patient denies any chest pain, nausea, vomiting or diarrhea. His initial lab work showed he had a leukocytosis and a left shift with a white count being 18,300. He was mildly anemia with hemoglobin 10.5 and 32.0 hematocrit respectively with chemistries showing a creatinine of 1.65 with patient's baseline creatinine noted to be around 1. His liver functions were all within normal limits. He had a influenza by PCR that was negative for A and B. His chest x-ray per radiology interpretation showed some chronic obstructive changes with some mild airway thickening most notable in the left perihilar and lingual area but no consolidation findings, more consistent with bronchitis but no overt pneumonia. His vital signs in the Emergency Room showed he was hypoxic on nasal cannula initially at 86%. With a breathing treatment he improved to 94%. He was running a low grade fever of 99.5 initially showing to be hemodynamically stable with a blood pressure of 116/73, heart rate 72. Given his comorbidities and concern for past history of aspiration and developing leukocytosis with x-rays concerning for developing bronchitis and at this point probably community acquired pneumonia, the Emergency Room physician, Dr. Wilhelm, requested the patient placed in observation overnight for initiation of parenteral antibiotics and further treatment and evaluation. He was placed in observation in stable condition. DISCHARGE LABORATORY STUDIES: White count improving at 14,200, hemoglobin and hematocrit 9.5 and 29.5 respectively with platelet count 230,000. Differential does continue to show a left shift. Chemistries showed normal electrolytes with a normalized creatinine at 1.29, calcium 8.5. RADIOLOGY: Repeat chest x-ray on morning of discharge showed right basilar interstitial infiltrate. HOSPITAL COURSE: Mr. Ricardo was admitted for exacerbation of chronic obstructive pulmonary disease with concerning right-sided pneumonia. He was initiated on antibiotic therapy initially with Rocephin and azithromycin. He did well overnight with aggressive bronchial hygiene and was feeling well and clinically improved enough to discharge to continue with outpatient management. PHYSICAL ASSESSMENT ON DISCHARGE: VITAL SIGNS: Temperature 98.7, pulse 79, blood pressure 124/66, respirations 18 to 20, satting 98% on 3 liters nasal cannula. GENERAL: Resting comfortably. Appeared to be in no acute distress. He is alert. CHEST: Lung sounds were fairly clear, just diminished towards the bases with no obvious rales. There was a very slight rhonchi heard noted on the right lower lung more prominent on the posterolateral aspect. The left lung was fairly clear, just diminished towards the base. HEART: Regular rate and rhythm. ABDOMEN: Soft, non-tender. Positive bowel sounds. PEG tube remains in place showing without any signs of infection or complications. EXTREMITIES: Without edema. NEUROLOGIC: He is alert and oriented times three. PLAN: On discharge, the patient will need followup with his primary care provider, Carmelo Segovia. He was encourage good bronchial hygiene and increase activity as tolerated. Diet was usual diet as tolerated. New medications at discharge included: 1. Levaquin 500 mg daily for 4 days. 2. Albuterol inhaler, 1 inhaler puff every 4 hours as needed for shortness of breath. No refills. All other medications prior to hospitalization were continued. He was given 1 dose of Levaquin prior to discharge. Condition on discharge was stable and improving. DISPOSITION: The patient was discharged to the care of family members. #[id number] [facility]
== END 2019-08-02 11:55 | disposition home health service (06) ==
LOC: ER 12:55 → MS 17:48
PROVIDERS: ADMIT Nurse Practitioner Family; ATTEND Nurse Practitioner Family
DX: J44.1 Chronic obstructive pulmonary disease with (acute) exacerbation (principal); J18.1 Lobar pneumonia, unspecified organism; D72.829 Elevated white blood cell count, unspecified; D64.9 Anemia, unspecified; N17.9 Acute kidney failure, unspecified; E86.0 Dehydration; I10 Essential (primary) hypertension; F03.90 Unspecified dementia, unspecified severity, without behavioral disturbance, psychotic disturbance, mood disturbance, and anxiety; R09.02 Hypoxemia; F32.9 Major depressive disorder, single episode, unspecified; Z79.899 Other long term (current) drug therapy; Z88.8 Allergy status to other drugs, medicaments and biological substances; Z86.73 Personal history of transient ischemic attack (TIA), and cerebral infarction without residual deficits; Z85.01 Personal history of malignant neoplasm of esophagus; Z92.21 Personal history of antineoplastic chemotherapy; Z92.3 Personal history of irradiation; Z93.1 Gastrostomy status; Z87.891 Personal history of nicotine dependence; Z80.0 Family history of malignant neoplasm of digestive organs
CPT/HCPCS: 96361; 96365; 96375; 96376; J0696 ×2; J7030 ×3; A4216; J7050 ×2; J0456; J7620 ×2; 80048 ×2; 36415 ×2; 81001; 80076; 85025 ×2; 71046 ×2; 94640 ×4; 99285; G0378; 87502

== ENCOUNTER → 2019-08-31 | Outpatient (CLI) | payer OTHER ==
--- NOTE | 2019-08-31 17:56 | RAD ---
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 The lungs are clear. There is no effusion. No evidence of metastatic neoplasm is detected. IMPRESSION: 1. Normal two-view chest. The previous right basilar infiltrate has cleared. Electronically signed by: Damaso Slater MD 08/31/2019 5:55 PM [facility]
== END ==
LOC: RAD 15:08
PROVIDERS: ATTEND Otolaryngology Otolaryngology/Facial Plastic Surgery
DX: C32.1 Malignant neoplasm of supraglottis (principal)

== ENCOUNTER → 2019-10-13 | Outpatient (CLI) | payer OTHER | LOC: HHH 14:51 | PROVIDERS: ATTEND Nurse Practitioner Family | DX: F33.1 Major depressive disorder, recurrent, moderate (principal); E11.9 Type 2 diabetes mellitus without complications; N18.9 Chronic kidney disease, unspecified; R62.7 Adult failure to thrive ==

== ENCOUNTER → 2019-10-22 | Outpatient (CLI) | payer OTHER ==
--- NOTE | 2019-10-23 08:22 | RAD ---
EXAM DESCRIPTION: Chest,2 Views CLINICAL HISTORY: PNEUMONIA COMPARISON: Previous study August 31, 2019 TECHNIQUE: PA/lateral FINDINGS: Right hemidiaphragm is elevated. Heart size is normal with normal pulmonary vascularity. No pleural effusion or pneumothorax. Lungs are clear with no consolidating infiltrate. Lateral view shows intact sternum and spurring in the T-spine. Colonic interposition below the right hemidiaphragm. IMPRESSION: No acute process is identified in the chest. Electronically signed by: Cricket Queen MD 10/23/2019 8:[address] [facility]
== END ==
LOC: LAB.O 14:53
PROVIDERS: ATTEND Nurse Practitioner Family
DX: J18.9 Pneumonia, unspecified organism (principal); R30.0 Dysuria

== ENCOUNTER → 2019-11-03 | Outpatient (CLI) | payer OTHER | DX: E63.0 Essential fatty acid [EFA] deficiency (principal); I25.10 Atherosclerotic heart disease of native coronary artery without angina pectoris; C32.3 Malignant neoplasm of laryngeal cartilage ==

== ENCOUNTER 2020-04-29 19:22 | Emergency (ER) | payer OTHER ==
[2020-04-29] MEDS ORDERED: MORPHINE SULFATE INJ 10 MG/ML VIAL IV ONE ×2 (19:36→20:48)
[2020-04-29] MEDS ORDERED: ONDANSETRON INJ 4 MG/2 ML VIAL IV ONE (19:36)
[2020-04-29] MEDS ORDERED: IPRATROPIUM/ALBUTEROL 3 ML VIAL NEB ONE (19:37)
--- NOTE | 2020-04-29 19:42 | ED.PDOC ---
History of Present Illness - General Chief Complaint: Trauma Time Seen by Provider: 04/29/20 19:29 Source: patient, RN notes reviewed, Vital Signs reviewed, EMS notes reviewed, family Exam Limitations: no limitations - History of Present Illness Initial Comments: Patient is a 75-year-old male with past medical history of CVA and laryngeal cancer. He has completed chemotherapy and has a feeding tube. Presents to ED for right hip pain after falling. states he was getting out of his lift chair about 30 minutes prior to arrival and unbuckled himself and fell on his right hip. Patient states he thinks he hit the back of his head but had no loss of consciousness. states he is not on any blood thinners. He denies neck or back pain. Reports pain to right hip and EMS was called to transport to ED for further evaluation. Unable to ambulate since the fall. Was not given any medications by EMS in route. Allergies/Adverse Reactions: Allergies Nitroglycerin Adverse Reaction (Verified 08/01/19 18:10) Other "Drops the BP down real low" Home Medications: Ambulatory Orders Escitalopram [Lexapro] 20 mg PO DAILY 02/12/15 Omeprazole Magnesium [Prilosec] 40 mg PO DAILY 10/18/18 Clotrimazole 10 mg MT TID 08/01/19 Cyanocobalamin [B12] 1,000 mcg PO DAILY 08/01/19 Folic Acid 800 mcg PO DAILY 08/01/19 Metoclopramide HCl [Metoclopramide Hydrochlor] 10 mg PO QID 08/01/19 Mirtazapine 30 mg PO BEDTIME 08/01/19 Montelukast [Singulair] 10 mg PO BEDTIME 08/01/19 Albuterol Inhaler [Ventolin Hfa Inhaler] 1 puff INH Q4HR PRN #1 inh 08/02/19 levoFLOXacin [Levaquin] 500 mg PO DAILY #4 tab 08/02/19 Review of Systems - Review of Systems Constitutional: Denies: chills, fever EENTM: Denies: blurred vision, nose congestion Respiratory: States: wheezing. Denies: cough, short of breath Cardiology: Denies: chest pain, edema, palpitations, syncope Gastrointestinal/Abdominal: Denies: abdominal pain, nausea, vomiting Musculoskeletal: States: see HPI Neurological: Denies: headache, paresthesia All other Systems: Reviewed and Negative Past Medical History (General) - Patient Medical History Hx Seizures: No Hx Stroke: Yes Hx Dementia: Yes - DOCUMENTED ON H&P FROM 02/13/15 Hx Asthma: No Hx of COPD: No Hx Cardiac Disorders: No Hx Congestive Heart Failure: No Hx Pacemaker: No Hx Hypertension: Yes Hx Thyroid Disease: No Hx Diabetes: No Hx Gastroesophageal Reflux: Yes Hx Renal Disease: No Hx Cancer: No Hx of HIV: No Hx Hepatitis C: No Hx MRSA: No - Vaccination History Hx Tetanus, Diphtheria Vaccination: - Unk Hx Influenza Vaccination: Yes Hx Pneumococcal Vaccination: Yes - Social History Hx Tobacco Use: Yes Hx Chewing Tobacco Use: No Hx Alcohol Use: Yes Hx Substance Use: No Hx Substance Use Treatment: No Hx Depression: No Hx Physical Abuse: No Hx Emotional Abuse: No Hx Suspected Abuse: No - Female History Patient : No Family Medical History - Family History Father Family History: No Known Name: Jose Ricardo Sr. Living Status: Age at (years of age): 72 Cause of : Pancreatic cancer Hx Family Asthma: - other history unknown Hx Family Cancer: Yes Physical Exam - Physical Exam General Appearance: Alert, Other - appears uncomfortable from right hip pain Eye Exam: bilateral other - PERRL Ears, Nose, Throat: other - well healed anterior neck surgical incision Neck: non-tender, full range of motion, supple - No vertebral tenderness Respiratory: chest non-tender, other - no respiratory distress. Mild expiratory wheezes Cardiovascular/Chest: regular rate, rhythm, no edema, no murmur Peripheral Pulses: dorsalis pedis,right: 1+, dorsalis pedis,left: 1+, posterior tibialis,right: 1+, posterior tibialis,left: 1+ Gastrointestinal/Abdominal: non tender, soft, no pulsatile mass Back Exam: no vertebral tenderness Extremity: other - Pelvis is stable. Diffusely TTP right hip. Right leg is shortened and externally rotated. Good distal pulses. Neurologic: alert, normal mood/affect, oriented x 3 Skin Exam: normal color, warm/dry Progress - Progress Progress: 04/29/20 20:46 I have discussed with patient and CT and lab findings showing right hip fracture. Discussed that if he stays at this facility will likely be Saturday or Saturday( Holiday Saturday) before he was able to be able to have surgery and they request transfer to [facility] where all of his doctors are located. Will attempt to transfer to [facility] due to higher level of care with no surgical capabilities at this facility at this time. 04/29/20 20:[address] Guido, [facility] ED Physician and accepts pt to ED. - Results/Orders Results/Orders: EKG- NSR, rate 76, nml intervals, nonspecific ST abnormality CT BRAIN EXAM DESCRIPTION: CT Head CLINICAL HISTORY: 75 years Male trauma, fall TECHNIQUE: Axial noncontrast CT head with coronal and sagittal reformats. All CT scans at this facility use dose modulation, iterative reconstruction, and/or weight based dosing when appropriate to reduce radiation dose to as low as reasonably achievable. COMPARISON: May 06, 2017. FINDINGS: Brain: Diffuse parenchymal volume loss. Small remote lacunar infarcts in the bilateral basal ganglia and thalami. Chronic small vessel disease. No obvious large territorial infarction. No intracranial hemorrhage, midline shift, mass or mass effect. Atherosclerotic calcification of the intracranial vasculature. Ventricles: No hydrocephalus. Orbits: Unremarkable. Sinuses: Mild maxillary sinus mucosal thickening. Mastoid: Clear Osseous: Unremarkable. Soft tissues: Unremarkable. IMPRESSION: No acute findings. CT C SPINE EXAM DESCRIPTION: Cervical Spine CLINICAL HISTORY: 75 years Male trauma, fall TECHNIQUE: Noncontrast cervical spine CT with sagittal and coronal reconstructions. All CT scans at this facility use dose modulation, iterative reconstruction, and/or weight based dosing when appropriate to reduce radiation dose to as low as reasonably achievable. COMPARISON: None FINDINGS: Vertebra: No acute cervical spine fracture. Mild anterior superior endplate compression deformity at T1. Disc: Multilevel degenerative changes. Alignment: Unremarkable. Canal: No high-grade spinal canal stenosis. Soft tissues: Unremarkable.. Lungs: Visualized lung apices are clear. IMPRESSION: 1. No acute cervical spine pathology. 2. Mild anterior superior endplate compression deformity at T1, age indeterminate. CT PELVIS CLINICAL HISTORY: right hip pain TECHNIQUE: Axial noncontrast CT pelvis with coronal and sagittal reformats. This exam was performed according to our departmental dose-optimization program, which includes automated exposure control, adjustment of the mA and/or kV according to patient size and/or use of iterative reconstruction technique. COMPARISON: None available for comparison. FINDINGS: Bowel: Large stool in the rectum. Diverticulosis without inflammatory changes. Urinary bladder: Unremarkable Reproductive: Unremarkable as visualized Lymph nodes: No pathologically enlarged lymph nodes. Peritoneum: No focal fluid collection. No free air. Vessels: Minimal vascular calcifications. Soft tissues: Subcutaneous stranding in the right buttock Bones: Comminuted right femoral neck fracture superior lateral apex angulation. No hip dislocation. Asymmetric buckling of the right iliac wing. Remote bilateral inferior pubic rami and left superior pubic rami fractures. Multilevel degenerative changes of the spine. Bilateral sacroiliac joints are symmetric. IMPRESSION: 1. Comminuted right femoral neck fracture superior lateral apex angulation. 2. No hip dislocation. 3. Asymmetric buckling of the right iliac wing suspicious for an nondisplaced fracture. 4. Subcutaneous stranding in the right buttock consistent with contusion. CHEST XRAY EXAM DESCRIPTION: X-RAY Chest,1 View CLINICAL HISTORY: 75 years Male, trauma, fall COMPARISON: October 22, 2019. FINDINGS/IMPRESSION: 1. Cardiomediastinal silhouette is unchanged. 2. No focal consolidation, pneumothorax or pleural effusion. 3. New elevation of the right hemidiaphragm with minimal atelectasis. 4. No obvious fracture. 04/29/20 19:35 IV:Start .ONCE 04/29/20 20:45 EKG STAT Laboratory Results - last 24 hr 04/29/20 04/29/20 19:47 19:47 WBC 6.2 RBC 4.29 L Hgb 14.0 Hct 40.7 L MCV 94.9 H MCH 32.7 H MCHC 34.5 RDW 14.2 Plt Count 192 MPV 8.6 Absolute Neuts (auto) 4.30 Absolute Lymphs (auto) 1.10 Absolute Monos (auto) 0.50 Absolute Eos (auto) 0.20 Absolute Basos (auto) 0.10 Neutrophils % 70.2 Lymphocytes % 17.1 L Monocytes % 8.5 Eosinophils % 3.0 Basophils % 1.2 Sodium 137 Potassium 4.6 Chloride 103 Carbon Dioxide 23 Anion Gap 15.6 BUN 32 H Creatinine 1.14 BUN/Creatinine Ratio 28.1 H Random Glucose 97 Serum Osmolality 280.6 Calcium 8.7 Departure - Departure Clinical Impression: Fracture of femoral neck, right Qualifiers: Encounter type: initial encounter Fracture type: closed Qualified Code(s): S72.001A - Fracture of unspecified part of neck of right femur, initial encounter for closed fracture Closed head injury Qualifiers: Encounter type: initial encounter Qualified Code(s): S09.90XA - Unspecified injury of head, initial encounter Time of Disposition: 20:58 Disposition: Transfer to Hospital Condition: Fair Departure Forms: ED Discharge - Pt. Copy, Patient Portal Self Enrollment Instructions: DI for Trauma Home Medications: Ambulatory Orders Escitalopram [Lexapro] 20 mg PO DAILY 02/12/15 Omeprazole Magnesium [Prilosec] 40 mg PO DAILY 10/18/18 Clotrimazole 10 mg MT TID 08/01/19 Cyanocobalamin [B12] 1,000 mcg PO DAILY 08/01/19 Folic Acid 800 mcg PO DAILY 08/01/19 Metoclopramide HCl [Metoclopramide Hydrochlor] 10 mg PO QID 08/01/19 Mirtazapine 30 mg PO BEDTIME 08/01/19 Montelukast [Singulair] 10 mg PO BEDTIME 08/01/19 Albuterol Inhaler [Ventolin Hfa Inhaler] 1 puff INH Q4HR PRN #1 inh 08/02/19 levoFLOXacin [Levaquin] 500 mg PO DAILY #4 tab 08/02/19 Transfer to Outside Facility - Transfer Information Decision to Transfer Date: 04/29/20 Decision to Transfer Time: 20:56 Reason for Transfer: specialized care not available Accepting Provider:: Lata Accepting Facility: [facility]
--- NOTE | 2020-04-29 20:27 | RAD ---
EXAM DESCRIPTION: X-RAY Chest,1 View CLINICAL HISTORY: 75 years Male, trauma, fall COMPARISON: October 22, 2019. FINDINGS/IMPRESSION: 1. Cardiomediastinal silhouette is unchanged. 2. No focal consolidation, pneumothorax or pleural effusion. 3. New elevation of the right hemidiaphragm with minimal atelectasis. 4. No obvious fracture. Electronically signed by: Jose Rodriguez MD 04/29/2020 8:25 PM CDT
--- NOTE | 2020-04-29 20:32 | CT ---
EXAM DESCRIPTION: Cervical Spine CLINICAL HISTORY: 75 years Male trauma, fall TECHNIQUE: Noncontrast cervical spine CT with sagittal and coronal reconstructions. All CT scans at this facility use dose modulation, iterative reconstruction, and/or weight based dosing when appropriate to reduce radiation dose to as low as reasonably achievable. COMPARISON: None FINDINGS: Vertebra: No acute cervical spine fracture. Mild anterior superior endplate compression deformity at T1. Disc: Multilevel degenerative changes. Alignment: Unremarkable. Canal: No high-grade spinal canal stenosis. Soft tissues: Unremarkable.. Lungs: Visualized lung apices are clear. IMPRESSION: 1. No acute cervical spine pathology. 2. Mild anterior superior endplate compression deformity at T1, age indeterminate. Electronically signed by: Jose Rodriguez MD 04/29/2020 8:31 PM CDT
--- NOTE | 2020-04-29 20:38 | CT ---
EXAM DESCRIPTION: CT Head CLINICAL HISTORY: 75 years Male trauma, fall TECHNIQUE: Axial noncontrast CT head with coronal and sagittal reformats. All CT scans at this facility use dose modulation, iterative reconstruction, and/or weight based dosing when appropriate to reduce radiation dose to as low as reasonably achievable. COMPARISON: May 06, 2017. FINDINGS: Brain: Diffuse parenchymal volume loss. Small remote lacunar infarcts in the bilateral basal ganglia and thalami. Chronic small vessel disease. No obvious large territorial infarction. No intracranial hemorrhage, midline shift, mass or mass effect. Atherosclerotic calcification of the intracranial vasculature. Ventricles: No hydrocephalus. Orbits: Unremarkable. Sinuses: Mild maxillary sinus mucosal thickening. Mastoid: Clear Osseous: Unremarkable. Soft tissues: Unremarkable. IMPRESSION: No acute findings. Electronically signed by: Jose Rodriguez MD 04/29/2020 8:36 PM CDT
--- NOTE | 2020-04-29 20:43 | CT ---
PROCEDURE: Pelvis CLINICAL HISTORY: right hip pain TECHNIQUE: Axial noncontrast CT pelvis with coronal and sagittal reformats. This exam was performed according to our departmental dose-optimization program, which includes automated exposure control, adjustment of the mA and/or kV according to patient size and/or use of iterative reconstruction technique. COMPARISON: None available for comparison. FINDINGS: Bowel: Large stool in the rectum. Diverticulosis without inflammatory changes. Urinary bladder: Unremarkable Reproductive: Unremarkable as visualized Lymph nodes: No pathologically enlarged lymph nodes. Peritoneum: No focal fluid collection. No free air. Vessels: Minimal vascular calcifications. Soft tissues: Subcutaneous stranding in the right buttock Bones: Comminuted right femoral neck fracture superior lateral apex angulation. No hip dislocation. Asymmetric buckling of the right iliac wing. Remote bilateral inferior pubic rami and left superior pubic rami fractures. Multilevel degenerative changes of the spine. Bilateral sacroiliac joints are symmetric. IMPRESSION: 1. Comminuted right femoral neck fracture superior lateral apex angulation. 2. No hip dislocation. 3. Asymmetric buckling of the right iliac wing suspicious for an nondisplaced fracture. 4. Subcutaneous stranding in the right buttock consistent with contusion. Electronically signed by: Jose Rodriguez MD 04/29/2020 8:41 PM CDT
[2020-04-29 20:51] VITALS: TEMP 97.2
[2020-04-29 21:55] VITALS: BP 157/103; O2SAT 93
== END 2020-04-29 21:52 | disposition short-term general hospital (02) ==
LOC: ER 19:22
DX: S72.001A Fracture of unspecified part of neck of right femur, initial encounter for closed fracture (principal); S09.90XA Unspecified injury of head, initial encounter; I10 Essential (primary) hypertension; F17.200 Nicotine dependence, unspecified, uncomplicated; Z86.73 Personal history of transient ischemic attack (TIA), and cerebral infarction without residual deficits; Z85.21 Personal history of malignant neoplasm of larynx; W07.XXXA Fall from chair, initial encounter; Y92.9 Unspecified place or not applicable
CPT/HCPCS: 36415; 70450; 71045; 72125; 72192; 80048; 85025; 93005; 94640; J2270; J2405; J7620

== ENCOUNTER → 2020-06-07 | Outpatient (CLI) | payer OTHER | LOC: HHH 13:01 | PROVIDERS: ATTEND Internal Medicine | DX: C12 Malignant neoplasm of pyriform sinus (principal); C32.1 Malignant neoplasm of supraglottis; D50.8 Other iron deficiency anemias; D53.9 Nutritional anemia, unspecified ==

== ENCOUNTER → 2020-07-29 | Outpatient (CLI) | payer OTHER | LOC: HHH 13:04 | PROVIDERS: ATTEND Internal Medicine | DX: N18.30 Chronic kidney disease, stage 3 unspecified (principal); E83.42 Hypomagnesemia; E83.30 Disorder of phosphorus metabolism, unspecified ==

== ENCOUNTER → 2020-10-17 | Outpatient (CLI) | payer OTHER | LOC: HHH 12:46 | DX: R30.0 Dysuria (principal); D64.9 Anemia, unspecified; R79.89 Other specified abnormal findings of blood chemistry ==